=== PATIENT | male | born 1975 | race American Indian/Alaskan Native ===

== ENCOUNTER 2018-03-18 11:03 | Emergency (ER) | payer OTHER ==
[2018-03-18 11:16] VITALS: BP 145/80; PULSE 112; RESP 20; TEMP 99.6; O2SAT 98
--- NOTE | 2018-03-18 11:29 | C.PDOC ---
History Of Present Illness 42 y/o M sent from pain management doctor's office for R leg swelling and R foot pain x 1 month. Patient denies fever, trauma, chest pain, dyspnea. He notes he has had a DVT in the past so his pain management doctor instructed him to come to ED to rule out DVT prior to returning to his office. Time Seen by Provider: 03/18/18 11:18 Chief Complaint (Nursing): Lower Extremity Problem/Injury Past Medical History Vital Signs: Last Vital Signs Temp 99.6 F 03/18/18 11:11 Pulse 112 H 03/18/18 11:11 Resp 20 03/18/18 11:11 BP 145/80 03/18/18 11:11 Pulse Ox 98 03/18/18 13:05 - Medical History PMH: Deep Vein Thrombosis, HTN Family History: States: No Known Family Hx - Social History Hx Alcohol Use: Yes Hx Substance Use: No - Immunization History Hx Tetanus Toxoid Vaccination: No Hx Influenza Vaccination: Yes Hx Pneumococcal Vaccination: No Review Of Systems Except As Marked, All Systems Reviewed And Found Negative. Constitutional: Negative for: Fever Cardiovascular: Negative for: Chest Pain Physical Exam - Physical Exam Additional Physical Exam Comments: Head: NC Gen: NAD CV: DP pulse 2+ Resp: No accessory muscle use Skin: No rash Extremities: R foot and lower leg with edema, no bony tenderness Neuro: Alert, moves all digits and leg joints ED Course And Treatment O2 Sat by Pulse Oximetry: 98 Medical Decision Making Medical Decision Making: Doppler for rule out DVT and XRs to evaluate for fracture. XR foot, ankle, tib/fib show no fracture or dislocation. 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 Offered admission for anticoagulation but patient wishes to leave as he has other family responsibilities. Will start Eliquis in ED and give prescription, advised to return if he can not fill due to insurance issues. Instructed to return immediately for any chest pain or dyspnea. Disposition - Disposition Disposition: HOME/ ROUTINE Disposition Time: 13:09 Condition: STABLE Prescriptions: Apixaban [Eliquis] 10 mg PO BID #60 tablet Instructions: Deep Vein Thrombosis (Blood Clots in the Legs) Forms: [employer] (Frisian) - Clinical Impression Clinical Impression: Deep venous thrombosis of lower extremity
--- NOTE | 2018-03-18 11:52 | RAD ---
PROCEDURE: Right Foot Radiographs. HISTORY: dorsal foot pain, edema COMPARISON: None. FINDINGS: BONES: Bone alignment is normal. There is no acute displaced fracture or bone destruction. There is periarticular bone demineralization. JOINTS: Normal. SOFT TISSUES: There is mild dorsal soft tissue swelling. OTHER FINDINGS: None. IMPRESSION: Mild dorsal soft tissue swelling. No acute fracture or dislocation
--- NOTE | 2018-03-18 11:53 | RAD ---
PROCEDURE: Right Ankle Radiographs. HISTORY: anterior ankle pain, edema COMPARISON: None FINDINGS: BONES: Bone alignment and mineralization are normal. There is no acute displaced fracture or bone destruction. JOINTS: Normal. Ankle mortise maintained. Talar dome intact SOFT TISSUES: There is moderate periarticular soft tissue swelling. OTHER FINDINGS: None. IMPRESSION: No acute fracture or dislocation.
--- NOTE | 2018-03-18 11:53 | RAD ---
PROCEDURE: Radiographs of the right tibia and fibula. HISTORY: leg swelling COMPARISON: None available. TECHNIQUE: Frontal and lateral views obtained. FINDINGS: BONES: Bone alignment and mineralization are normal. There is no acute displaced fracture or bone destruction. JOINT SPACES: Unremarkable. OTHER FINDINGS: None. IMPRESSION: No acute fracture or dislocation.
--- NOTE | 2018-03-21 10:08 | VASCLAB ---
PROCEDURE: Right Lower Extremity Venous Duplex Exam. HISTORY: leg swelling PRIORS: None. TECHNIQUE: Right common femoral, femoral, popliteal and posterior tibial, peroneal and great saphenous veins were evaluated. Flow was assessed with color Doppler, compressibility, assessment of phasic flow and augmentation response. Report prepared by NATHANAEL Smith, RVT FINDINGS: RIGHT: 1. Common Femoral Vein: 1.1. Compressibility - Fully compressible: Thrombus - None: Flow - Phasic: Augmentation -Normal: Reflux - None. 2. Femoral Vein: 2.1. Compressibility - Incompressible: Thrombus - Chronic: Flow - Reduced : Augmentation -Reduced: Reflux - None. 3. Popliteal Vein: 3.1. Compressibility - Fully compressible: Thrombus - None: Flow - Phasic: Augmentation -Normal: Reflux - Yes. 4. Posterior Tibial Vein: 4.1. Compressibility - Fully compressible: Thrombus - None: Flow - Phasic: Augmentation -Normal: Reflux - None. 5. Peroneal Vein: 5.1. Compressibility - Partial: Thrombus - Chronic: Flow - Reduced : Augmentation -Reduced: Reflux - None. 6. Great Saphenous Vein: 6.1. Compressibility - Fully compressible: Thrombus -None: Flow - Phasic: Augmentation - Normal: Reflux - None. OTHER FINDINGS: ANDRE Barreto notified about the findings. IMPRESSION: Chronic thrombosis of the right femoral and peroneal veins with mild reduction of the venous return. Valvular incompetence of the right popliteal vein. Normal venous flow noted in the left common femoral vein.
== END 2018-03-18 13:19 | disposition home or self-care (01) ==
LOC: C.ER 11:03
DX: I82.491 Acute embolism and thrombosis of other specified deep vein of right lower extremity (principal)